=== PATIENT | female | born 1960 | race Caucasian/White ===

== ENCOUNTER 2016-05-31 14:42 | Emergency (ER) | payer BC ==
[2016-05-31 15:53] VITALS: BP 147/94
--- NOTE | 2016-05-31 16:47 | RAD ---
Indication: Left ankle injury and trauma. 3 views of left ankle demonstrate soft tissue swelling. No fracture is identified. IMPRESSION: Soft tissue swelling laterally without fracture.
--- NOTE | 2016-05-31 16:49 | RAD ---
Indication: Anterior knee pain post fall. Comparison: No relevant prior exams available on the [facility]. Technique: AP, tunnel, lateral, sunrise views RIGHT knee. Report: Normal articular alignment. Mild medial joint compartment and patellofemoral joint osteophytosis. Negative for significant joint space narrowing. Negative for effusion or fracture. Unremarkable soft tissue contours. IMPRESSION: No traumatic injury evident. Mild osteoarthritis.
--- NOTE | 2016-05-31 17:21 | UC ---
Lower Extremity/Ankle HPI - HPI Summary HPI Summary: TRIPPED ON [place] TWISTED LEFT ANKLE AND FELL WITH CONTUSION TO RIGHT KNEE. HISTORY OF FREQUENT ANKLE SPRAINS - History of Current Complaint Chief Complaint: UCLowerExtremity Stated Complaint: ANKLE AND KNEE INJURY Time Seen by Provider: 05/31/16 15:49 Hx Obtained From: Patient Onset/Duration: Sudden Onset, Lasting Hours, Still Present Severity Initially: Moderate Severity Currently: Mild Aggravating Factor(s): Standing, Ambulation Alleviating Factor(s): Rest, Elevation Able to Bear Weight: Yes - Risk Factors Gout Risk Factors: Negative DVT Risk Factors: Negative Septic Arthritis Risk Factor: Negative - Allergies/Home Medications Allergies/Adverse Reactions: Allergies Allergy/AdvReac Type Severity Reaction Status Date / Time No Known Allergies Allergy Verified 05/31/16 15:53 Home Medications: Home Medications Escitalopram (NF) [Lexapro (NF)] 5 mg PO DAILY 05/31/16 [History Confirmed 05/31] Estradiol (NF) 1 mg PO DAILY 05/31/16 [History Confirmed 05/31/16] Olmesartan Medoxomil [Benicar] 10 mg PO 05/31/16 [History] Progesterone Micronized [Prometrium] 100 mg PO 05/31/16 [History] PMH/Surg Hx/FS Hx/Imm Hx Previously Healthy: Yes Endocrine History Of: Denies: Diabetes, Thyroid Disease Cardiovascular History Of: Reports: Hypertension Denies: Cardiac Disorders Respiratory History Of: Denies: COPD, Asthma GI/ History Of: Denies: Ulcer - Surgical History Surgical History: Yes Surgery Procedure, Year, and Place: carple tunnel, 2 c-sections, tummy tuck, breast reduction - Family History Known Family History: Negative: Respiratory Disease - Social History Occupation: Employed Full-time Lives: With Family Alcohol Use: Daily Substance Use Type: None Smoking Status (MU): Never Smoked Tobacco Review of Systems Constitutional: Negative Skin: Negative Eyes: Negative ENT: Negative Respiratory: Negative Cardiovascular: Negative Gastrointestinal: Negative Genitourinary: Negative Motor: Negative Neurovascular: Negative Musculoskeletal: Arthralgia, Edema - RIGHT KNEE; LEFT ANKLE, Myalgia Neurological: Negative Psychological: Negative All Other Systems Reviewed And Are Negative: Yes Physical Exam Triage Information Reviewed: Yes Appearance: Well-Appearing, No Pain Distress, Well-Nourished Vital Signs: Initial Vital Signs Temp 99.0 F 05/31/16 15:48 Pulse 67 05/31/16 15:48 Resp 18 05/31/16 15:48 BP 147/94 05/31/16 15:48 Pulse Ox 97 05/31/16 15:48 Vital Signs Reviewed: Yes Eye Exam: Normal Eyes: Positive: Conjunctiva Clear ENT Exam: Normal ENT: Positive: Normal ENT inspection, Hearing grossly normal, Pharynx normal, TMs normal Dental Exam: Normal Neck exam: Normal Neck: Positive: Supple, Nontender, No Lymphadenopathy Respiratory Exam: Normal Respiratory: Positive: Chest non-tender, Lungs clear, Normal breath sounds, No respiratory distress, No accessory muscle use Cardiovascular Exam: Normal Cardiovascular: Positive: RRR, No Murmur, Pulses Normal Abdominal Exam: Normal Musculoskeletal: Positive: Strength Intact, ROM Intact, Edema @ - RIGHT KNEE; LEFT ANKLE Neurological Exam: Normal Psychological Exam: Normal Skin Exam: Normal Lower Extremity Course/Dx - Differential Dx/Diagnosis Differential Diagnosis/HQI/PQRI: Fracture (Closed), Sprain, Strain Provider Diagnoses: LEFT ANKLE SPRAIN. RIGHT KNEE SPRAIN Discharge - Discharge Plan Condition: Stable Disposition: HOME Patient Education Materials: Ankle Sprain (ED), Knee Sprain (ED) Referrals: [facility] [Outside] No Primary Care Phys,NOPCP [Primary Care Provider] -
== END 2016-05-31 17:21 | disposition home or self-care (01) ==
LOC: UCEAST 14:42
DX: S93.402A Sprain of unspecified ligament of left ankle, initial encounter (principal); S83.91XA Sprain of unspecified site of right knee, initial encounter; W18.09XA Striking against other object with subsequent fall, initial encounter; Y93.9 Activity, unspecified; Y92.9 Unspecified place or not applicable; I10 Essential (primary) hypertension
CPT/HCPCS: 99203; G0463